=== PATIENT | female | born 1960 | race Caucasian/White ===

== ENCOUNTER 2017-02-07 15:27 | Emergency (ER) | payer OTHER ==
[2017-02-07 17:40] VITALS: BP 122/75
[2017-02-07] MEDS ORDERED: ULTRAM PO ONE (19:05)
--- NOTE | 2017-02-07 19:07 | Emergency Department Report ---
ED Lower Extremity HPI - General Chief Complaint: Extremity Injury, Lower Stated Complaint: LT KNEE ANKLE PAIN Time Seen by Provider: 02/07/17 18:53 Source: patient Mode of arrival: Wheelchair Limitations: No Limitations - History of Present Illness Initial Comments: This is a 56-year-old female presents with left knee, right elbow, and right wrist pain status post fall. Patient stated was at work walking and tripped and fell landing on her left knee while trying to stop her fall with her right hand. Patient stated he has tingling sensation in the left knee and right hand but denies any numbness. Patient denies any lacerations the affected areas. Patient rates her pain as a 9 out of 10. Patient denies any trauma to the head or other area of the body. Denies LOC, headaches, SOB, CP, dizziness, n/v. Patient stated is here with her daughter. Patient denies tenderness to snuff box. Patient does not seem toxic or ill in apperance. No signs of any distress noted. Patient stated allergies to Latex, Sulfa, and Bactrim. Patient denies taking anything for pain before arrival to the ED. MD Complaint: knee injury (left), fall, other (right elbow and wrist) -: Gradual, This afternoon (230 pm) Injury: Knee: Left Type of Injury: other (trip and fall) Place: work Severity: moderate Severity scale (0 -10): 9 Worsens With: movement, palpation Context: fall Associated Symptoms: swelling (left knee), tingling (left knee/right hand), able to partially bear weight. denies: numbness - Related Data Previous Rx's Medication Instructions Recorded Last Taken Type traMADol [Ultram] 50 mg PO Q6H PRN #12 tablet 02/07/17 Unknown Rx Allergies Allergy/AdvReac Type Severity Reaction Status Date / Time Latex, Natural Rubber Allergy Itching Verified 02/07/17 17:33 Sulfa (Sulfonamide Allergy Unknown Verified 02/07/17 17:33 Antibiotics) sulfamethoxazole Allergy Unknown Verified 02/07/17 17:33 [From Bactrim] trimethoprim [From Bactrim] Allergy Unknown Verified 02/07/17 17:33 ED Review of Systems ROS: Stated complaint: LT KNEE ANKLE PAIN Other details as noted in HPI Constitutional: denies: chills, fever Eyes: denies: eye pain, eye discharge, vision change ENT: denies: ear pain, throat pain Respiratory: denies: cough, shortness of breath, wheezing Cardiovascular: denies: chest pain, palpitations Endocrine: no symptoms reported Gastrointestinal: denies: abdominal pain, nausea, diarrhea Genitourinary: denies: urgency, dysuria, discharge Musculoskeletal: denies: back pain, joint swelling, arthralgia Skin: denies: rash, lesions Neurological: denies: headache, weakness, paresthesias Psychiatric: denies: anxiety, depression Hematological/Lymphatic: denies: easy bleeding, easy bruising ED Past Medical Hx - Past Medical History Previous Medical History?: Yes Hx Hypertension: Yes Additional medical history: Uterine fibroids, Umbilical hernia - Surgical History Past Surgical History?: Yes Hx Breast Surgery: Yes (Right breast biopsy) Additional Surgical History: x 2, Uterine fibroid embolization - Social History Smoking Status: Never Smoker Substance Use Type: Non Opiate Pain, Prescribed - Medications Home Medications: Home Medications Medication Instructions Recorded Confirmed Last Taken Type traMADol [Ultram] 50 mg PO Q6H PRN #12 tablet 02/07/17 Unknown Rx ED Physical Exam - General Limitations: No Limitations General appearance: alert, in no apparent distress - Head Head exam: Present: atraumatic, normocephalic - Eye Eye exam: Present: normal appearance, PERRL, EOMI - ENT ENT exam: Present: normal exam, normal orophraynx, mucous membranes moist - Neck Neck exam: Present: normal inspection, full ROM. Absent: tenderness - Respiratory Respiratory exam: Present: normal lung sounds bilaterally. Absent: respiratory distress, wheezes, rales - Cardiovascular Cardiovascular Exam: Present: regular rate, normal rhythm. Absent: systolic murmur, diastolic murmur, rubs, gallop - GI/Abdominal GI/Abdominal exam: Present: soft, normal bowel sounds. Absent: distended, tenderness - Extremities Exam Extremities exam: Absent: pedal edema, joint swelling, calf tenderness - Expanded Upper Extremity Exam Right General: Present: normal inspection. Absent: laceration, abrasion Shoulder Exam: Present: normal inspection, full ROM. Absent: tenderness, swelling, abrasion, laceration Upper Arm exam: Present: normal inspection, full ROM. Absent: tenderness, swelling, abrasion Elbow exam: Present: normal inspection, full ROM, tenderness. Absent: swelling , abrasion, laceration, ecchymosis Forearm Wrist exam: Present: normal inspection, full ROM. Absent: tenderness, swelling, abrasion, laceration Hand Wrist exam: Present: normal inspection, full ROM, tenderness (back lateral wrist). Absent: swelling, abrasion, laceration - Expanded Lower Extremity Exam Left Hip exam: Present: normal inspection, full ROM. Absent: tenderness, swelling, abrasion, laceration Upper Leg exam: Present: normal inspection, full ROM. Absent: tenderness, swelling, abrasion, laceration Knee exam: Present: normal inspection, full ROM, tenderness (lateral anterior), abrasion (lateral anterior), full knee extension. Absent: swelling, laceration , ecchymosis, pain w/ pronation/supination, posterior draw sign, pain/laxity with valgus, pain/laxity with varus Lower Leg exam: Present: normal inspection, full ROM. Absent: tenderness, swelling, abrasion, laceration, ecchymosis Ankle exam: Present: normal inspection, full ROM. Absent: tenderness, swelling , abrasion, laceration Foot/Toe exam: Present: normal inspection, full ROM. Absent: tenderness, swelling, abrasion, laceration, ecchymosis Neuro vascular tendon exam: Present: no vascular compromise Gait: Positive: observed and limited by pain - Back Exam Back exam: Present: normal inspection, full ROM. Absent: tenderness, CVA tenderness (R), CVA tenderness (L) - Neurological Exam Neurological exam: Present: alert, oriented X3, CN II-XII intact, normal gait - Psychiatric Psychiatric exam: Present: normal affect, normal mood - Skin Skin exam: Present: warm, dry, intact, normal color. Absent: rash ED Course Vital Signs 02/07/17 02/07/17 17:34 19:14 Temperature 98.1 F Pulse Rate 75 Respiratory 18 18 Rate Blood Pressure 122/75 O2 Sat by Pulse 99 Oximetry - Reevaluation(s) Reevaluation #1: 02/07/17 20:36 Patient stated pain is significantly better after ultram rate a 3 out of a 10. ED Lower Extremity MDM - Medical Decision Making Ed course: This is a 56 year old female that presents with a strain to right elbow and wrist, and left knee 1- x-ray of right wrist: No fracture seen. x-ray of right elbow: No fracture seen. x-ray of left knee: No abnormalities are seen. 2- patient received 50 mg of Ultram by mouth. Daughter is currently present at the bedside. 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 3- Russ to the knee and wrist applied. Denies numbness and tingling sensation to the extremities. 4- Patient does not seem toxic or ill apperance at the time of d/c. Patient agrees to d/c plan and treatment. Stated will follow-up with Ortho in 3-5 days. No further questions noted at the time of d/c. 5- patient received Ultram 50 mg by mouth at the time of discharge. I instructed the patient not to use any heavy machinery while taking Ultram due to sedation. 6- Patient received crutches 7- I instructed patient to rest, elevate, and apply ice to affect extremities. Critical care attestation.: If time is entered above; I have spent that time in minutes in the direct care of this critically ill patient, excluding procedure time. ED Disposition Clinical Impression: Strain of wrist, right Qualifiers: Encounter type: initial encounter Qualified Code(s): S66.911A - Strain of unspecified muscle, fascia and tendon at wrist and hand level, right hand, initial encounter Strain of elbow, right Qualifiers: Encounter type: initial encounter Qualified Code(s): S56.911A - Strain of unspecified muscles, fascia and tendons at forearm level, right arm, initial encounter Strain of knee and leg, left Qualifiers: Encounter type: initial encounter Qualified Code(s): S86.912A - Strain of unspecified muscle(s) and tendon(s) at lower leg level, left leg, initial encounter Disposition: DISCHARGED TO HOME OR SELFCARE Is pt being admited?: No Does the pt Need Aspirin: No Condition: Stable Instructions: Tramadol (By mouth), Knee Pain (ED), RICE Therapy (ED) Additional Instructions: Please follow-up with your orthopedic, primary care doctor in 3-5 days. Take medication as prescribed. Do not use any heavy machinery while taking Ultram due to positive sedation. If signs and symptoms worsen report back to emergency room. Prescriptions: traMADol [Ultram] 50 mg PO Q6H PRN #12 tablet PRN Reason: Pain Referrals: PRIMARY CAREMD [Primary Care Provider] - 3-5 Days BRITTANY ERAZO MD [Staff Physician] - 3-5 Days [facility] - [facility]5 Days [facility] [Outside] - 3-5 Days Forms: Work/School Release Form(ED)
--- NOTE | 2017-02-07 19:49 | XRay Report ---
FINAL REPORT PROCEDURE: XR KNEE 3V LT TECHNIQUE: Three views the left knee are obtained HISTORY: LEFT KNEE pain COMPARISON: No prior studies are available for comparison. FINDINGS: There is no fracture or dislocation. No arthritic changes are seen. There is no joint effusion. IMPRESSION: No abnormalities are seen.
--- NOTE | 2017-02-07 19:54 | XRay Report ---
FINAL REPORT PROCEDURE: XR ELBOW 3 RT TECHNIQUE: Three views of the right elbow are obtained HISTORY: RIGHT ELBOW pain status post fall COMPARISON: No prior studies are available for comparison. FINDINGS: No joint effusion is seen. Mild osteoarthritic changes are suspected. No fracture or dislocation is seen. IMPRESSION: No fracture is seen.
--- NOTE | 2017-02-07 19:55 | XRay Report ---
FINAL REPORT PROCEDURE: XR WRIST 3 RT TECHNIQUE: Four views of the right wrist are obtained HISTORY: RIGHT WRIST pain status post fall COMPARISON: No prior studies are available for comparison. FINDINGS: There is no fracture or dislocation. No arthritic changes are seen. IMPRESSION: No fracture is seen.
== END 2017-02-07 21:48 | disposition home or self-care (01) ==
LOC: ED 15:27
DX: S66.911A Strain of unspecified muscle, fascia and tendon at wrist and hand level, right hand, initial encounter (principal); S56.911A Strain of unspecified muscles, fascia and tendons at forearm level, right arm, initial encounter; S86.912A Strain of unspecified muscle(s) and tendon(s) at lower leg level, left leg, initial encounter; I10 Essential (primary) hypertension; Z88.2 Allergy status to sulfonamides; Z91.040 Latex allergy status; Z88.8 Allergy status to other drugs, medicaments and biological substances; W01.0XXA Fall on same level from slipping, tripping and stumbling without subsequent striking against object, initial encounter; Y93.89 Activity, other specified; Y92.89 Other specified places as the place of occurrence of the external cause; Y99.8 Other external cause status